=== PATIENT | male | born 1965 | race Hispanic/Latino ===

== ENCOUNTER → 2019-10-14 | Outpatient (CLI) | payer MEDICARE, OTHER | END | disposition home or self-care (01) | LOC: OIH 12:32 | PROVIDERS: ATTEND Internal Medicine | DX: I70.0 Atherosclerosis of aorta (principal); I10 Essential (primary) hypertension | CPT/HCPCS: 71046 ==

== ENCOUNTER → 2020-01-09 | Outpatient (CLI) | payer OTHER | END | disposition home or self-care (01) | LOC: OIH 10:32 | PROVIDERS: ATTEND Internal Medicine | DX: I11.0 Hypertensive heart disease with heart failure (principal); I50.9 Heart failure, unspecified | CPT/HCPCS: 71046 ==

== ENCOUNTER → 2021-01-14 | Outpatient (CLI) | payer OTHER | END | disposition home or self-care (01) | LOC: OIH 09:29 | PROVIDERS: ATTEND Internal Medicine | DX: M51.36 Other intervertebral disc degeneration, lumbar region (principal); M47.814 Spondylosis without myelopathy or radiculopathy, thoracic region | CPT/HCPCS: 72100 ==

== ENCOUNTER → 2023-09-12 | Outpatient (CLI) | payer OTHER ==
[~2023-09-12] MED LIST: ATOR40TA69 PO; HYDR-4068 PO; HYDR25TA PO; LEVE500T19 PO; LOSA50TA64 PO; METF-444 PO; METO50TA18 PO; OMEP20CA12 PO
== END | disposition home or self-care (01) ==
LOC: OIH 10:28
PROVIDERS: ATTEND Internal Medicine
DX: M16.0 Bilateral primary osteoarthritis of hip (principal); M25.551 Pain in right hip
CPT/HCPCS: 73521

== ENCOUNTER → 2024-02-20 | Outpatient (CLI) | payer OTHER | END | disposition home or self-care (01) | LOC: RAH 12:39 | PROVIDERS: ATTEND Student in an Organized Health Care Education/Training Program | DX: I51.7 Cardiomegaly (principal); I25.10 Atherosclerotic heart disease of native coronary artery without angina pectoris | CPT/HCPCS: 93306 ==

== ENCOUNTER → 2024-02-28 | Outpatient (CLI) | payer OTHER ==
[~2024-02-28] MED LIST changes: +IOHEXOL 350 MG/ML 100ML INFUS..BTL IV ONE; +METOPROLOL TARTRATE 1 MG/ML 5ML VIAL IV ONE
== END | disposition home or self-care (01) ==
LOC: RAH 07:59
PROVIDERS: ATTEND Student in an Organized Health Care Education/Training Program
DX: I25.10 Atherosclerotic heart disease of native coronary artery without angina pectoris (principal)
CPT/HCPCS: 75574; J3490; Q9967

== ENCOUNTER 2024-04-03 07:58 | Day surgery (SDC) | payer OTHER ==
[2024-04-01 08:36] LABS: BASOPHILS # (AUTO) 0.05 K/uL (0.00-0.20); BASOPHILS % (AUTO) 0.9 % (0.0-5.0); EOSINOPHILS # (AUTO) 0.49 K/uL (0.00-0.70); EOSINOPHILS % (AUTO) 9.2 % (0.0-8.0); IMMATURE GRANULOCYTE ABSOLUTE 0.02 K/uL (0-1); LYMPHOCYTES # (AUTO) 1.2 K/uL (1.0-4.8); MEAN CORPUSCULAR HEMOGLOBIN 31.9 pg (27.0-33.0); MEAN CORPUSCULAR HGB CONC 33.1 g/dL (32.0-36.0); MEAN CORPUSCULAR VOLUME 96.3 fL (79-99); MONOCYTES # (AUTO) 0.7 K/uL (0.1-1.0); MONOCYTES % (AUTO) 13.6 % (3.0-13.0); NEUTROPHILS # (AUTO) 2.8 K/uL (1.8-7.7); NEUTROPHILS % (AUTO) 52.9 % (40.0-77.0); PLATELET COUNT (AUTO) 232 K/uL (130-400); RED BLOOD CELL COUNT(AUTO) 4.05 MIL/uL (4.50-6.20); RED CELL DISTRIBUTION WIDTH 14.4 % (11.0-15.5); WHITE BLOOD COUNT (AUTO) 5.4 K/uL (4.8-10.8)
[2024-04-01 08:46] LABS: INR 1.06 (0.85-1.15); PROTHROMBIN TIME 11.4 SEC (9.6-11.6)
[2024-04-01 08:47] LABS: PARTIAL THROMBOPLASTIN TIME 27.9 SEC (26.3-35.5)
[2024-04-01 08:50] VITALS: BP 148/76; PULSE 65; RESP 19
[2024-04-01 08:50] LABS: CREATININE 1.2 mg/dL (0.5-1.3); POTASSIUM 3.8 mmol/L (3.5-5.1)
[2024-04-01 08:53] LABS: APPEARANCE,URINE CLEAR (CLEAR); BILIRUBIN,URINE NEGATIVE (NEGATIVE); COLOR,URINE COLORLESS (YELLOW); GLUCOSE, URINE (UA) NEGATIVE (NEGATIVE); KETONES,URINE NEGATIVE (NEGATIVE); LEUKOCYTE ESTERASE ,URINE NEGATIVE Leu/uL (NEGATIVE); NITRATE,URINE NEGATIVE (NEGATIVE); OCCULT BLOOD,URINE NEGATIVE (NEGATIVE); PH,URINE 6.5 (5.0-8.0); PROTEIN,URINE NEGATIVE (NEGATIVE); UROBILINOGEN,URINE 0.2 mg/dL (0.2-1.0)
[2024-04-01 08:57] LABS: ADD UA MICROSCOPIC NO
[2024-04-01 09:19] LABS: B-TYPE NATRIURETIC PEPTIDE 29 pg/mL (0-100)
[2024-04-03] VITALS (11 sets, daily range): BP systolic 105–151; BP diastolic 50–82; PULSE 61–76; RESP 15–18
[~2024-04-03] VITALS: Ht 182.9 cm; Wt 122.9 kg
[~2024-04-03 07:58] MED LIST changes: -IOHEXOL 350 MG/ML 100ML INFUS..BTL IV ONE; -METOPROLOL TARTRATE 1 MG/ML 5ML VIAL IV ONE
[2024-04-03] MEDS: 0.9%NACL 1000ML 1,000 ML IV ONE (09:16)
[2024-04-03] MEDS ORDERED: GABA-529 PO (09:33)
[2024-04-03] MEDS ORDERED: BACL10TA PO (09:33)
[2024-04-03] MEDS ORDERED: NITR0.4T50 SL (09:33)
[2024-04-03] MEDS ORDERED: TRAZ-185 PO (09:33)
[2024-04-03] MEDS ORDERED: ALBU90AE3 IH (09:33)
[2024-04-03] MEDS ORDERED: AMLO-257 PO (09:33)
[2024-04-03] MEDS ORDERED: FURO20TA4 PO (09:33)
[2024-04-03] MEDS ORDERED: AEC81 PO (09:33)
[2024-04-03] MEDS ORDERED: CARB100T61 PO (09:33)
[2024-04-03] MEDS ORDERED: ZOLP10TA2 PO (09:33)
[2024-04-03] MEDS ORDERED: DICL75TA5 PO (09:33)
[2024-04-03] MEDS ORDERED: IOHEXOL 350 MG/ML 100ML INFUS..BTL IV ONE (13:22)
[2024-04-03] MEDS ORDERED: MIDAZOLAM HCL 1 MG/ML 2ML VIAL ONE (13:22)
[2024-04-03] MEDS ORDERED: FENTANYL CITRATE PF 50 MCG/1 ML 2ML VIAL ONE (13:22)
[2024-04-03] MEDS ORDERED: VERAPAMIL HCL 2.5 MG/ML VIAL ONE (13:22)
[2024-04-03] MEDS ORDERED: LIDOCAINE HCL 400MG/20ML VIAL ONE (13:23)
[2024-04-03] MEDS ORDERED: NITROGLYCERIN 50MG VIAL ONE (13:23)
[2024-04-03] MEDS ORDERED: HEPARIN 10,000 UNIT/10ML (1,000 UNIT/ML) VIAL ONE (13:23)
[2024-04-03] MEDS ORDERED: GLUCAGON 1MG KIT 1 MG ML IM PRN (14:30)
[2024-04-03] MEDS ORDERED: 0.9%NACL 1000ML 1,000 ML IV SCH (14:30)
[2024-04-03] MEDS ORDERED: DEXTROSE 50%-WATER 50 ML DISP.SYRIN IV PRN (14:30)
== END 2024-04-03 18:35 | disposition home or self-care (01) ==
LOC: DAH 07:58
PROVIDERS: ATTEND Student in an Organized Health Care Education/Training Program
DX: I25.118 Atherosclerotic heart disease of native coronary artery with other forms of angina pectoris (principal); I10 Essential (primary) hypertension; R06.00 Dyspnea, unspecified; E11.65 Type 2 diabetes mellitus with hyperglycemia; E78.5 Hyperlipidemia, unspecified; Z96.643 Presence of artificial hip joint, bilateral; Z79.82 Long term (current) use of aspirin; Z79.84 Long term (current) use of oral hypoglycemic drugs; Z79.899 Other long term (current) drug therapy
CPT/HCPCS: 80048; 83880; 85025; 85610; 85730; 81003; 36415; 71045; 93005; 93458; 82948 ×2; C1769; C1894; A4649; J3010; J3490 ×3; J7030; J1644 ×2; J2250; Q9967; A4215; A4222; A4221; A4663; A4216; A4606; Q9965; A4223 ×3; 99156; 99157

== ENCOUNTER → 2024-07-04 | Outpatient (CLI) | payer OTHER ==
[~2024-07-04] MED LIST changes: +AEC81 PO; +ALBU90AE3 IH; +AMLO-257 PO; +BACL10TA PO; +CARB100T61 PO; +DICL75TA5 PO; +FURO20TA4 PO; +GABA-529 PO; -HYDR-4068 PO; -LEVE500T19 PO; +NITR0.4T50 SL; +TRAZ-185 PO; +ZOLP10TA2 PO
== END | disposition home or self-care (01) ==
LOC: RAH 07:42
PROVIDERS: ATTEND Internal Medicine
DX: M19.071 Primary osteoarthritis, right ankle and foot (principal); E11.621 Type 2 diabetes mellitus with foot ulcer; L97.519 Non-pressure chronic ulcer of other part of right foot with unspecified severity
CPT/HCPCS: 73620

== ENCOUNTER → 2024-07-19 | Outpatient (CLI) | payer OTHER | END | disposition home or self-care (01) | LOC: RAH 07:07 | PROVIDERS: ATTEND Internal Medicine | DX: S92.911A Unspecified fracture of right toe(s), initial encounter for closed fracture (principal); E11.621 Type 2 diabetes mellitus with foot ulcer; M19.071 Primary osteoarthritis, right ankle and foot; M86.8X7 Other osteomyelitis, ankle and foot; X58.XXXA Exposure to other specified factors, initial encounter; Y93.89 Activity, other specified; Y92.89 Other specified places as the place of occurrence of the external cause; Y99.8 Other external cause status | CPT/HCPCS: 73700 ==

== ENCOUNTER → 2025-05-29 | Outpatient (CLI) | payer OTHER ==
[~2025-05-29] MED LIST changes: +ZOLP-685 PO; -ZOLP10TA2 PO
--- NOTE | 2025-05-30 14:10 | HMCIMG ---
EXAMINATION: NONCONTRAST CT EXAMINATION OF THE LUMBAR SPINE. CLINICAL HISTORY: Suspected spinal canal stenosis. COMPARISON: None provided. TECHNIQUE: Thin collimated axial CT images of the lumbar spine were obtained with sagittal and coronal reformatted images also submitted. FINDINGS: The lumbar alignment is within normal limits. There is straightening of the lumbar spine that may reflect paraspinal muscle spasm. Vertebral body heights are maintained without a displaced fracture. The paraspinal musculature and soft tissues are within normal limits. FINDINGS BY LEVEL: L1-L2: Mild disc height loss and disc vacuum phenomenon. Bilobed lateral recess protrusions without canal or foraminal stenosis. The facet joints are preserved. L2-L3: There is advanced disc height loss with disc vacuum phenomenon and endplate degenerative changes. Disc bulge with endplate spondylotic changes deforming the ventral thecal sac together with ligamentum flavum hypertrophy contributing to moderate canal and bilateral foraminal stenosis. The facet joints are preserved. L3-L4: Mild disc bulge with bilobed lateral disc protrusion effacing the ventral thecal sac without canal or foraminal stenosis. The facet joints are preserved. L4-L5: Mild disc height loss with disc vacuum phenomena. There is disc bulge with central protrusion and endplate spondylotic changes effaces the ventral thecal sac and results in mild central canal stenosis and mild bilateral neural foraminal narrowing. Facet joints are preserved. L5-S1: Mild disc height loss. There is disc bulge with bilobed foraminal protrusions effaces the ventral thecal sac, and results in mild central canal stenosis and moderate lateral recess and neural foramina narrowing. Facet joints are preserved. IMPRESSION: 1. No acute osseous injury. 2. Multilevel degenerative changes of the lumbar spine, most pronounced at L2-L3 with moderate spinal canal and bilateral foraminal stenosis. 3. Mild central canal stenosis at L4-L5 and L5-S1, with mild L4-L5 and moderate L5-S1 foraminal stenosis. /Bronson
== END | disposition home or self-care (01) ==
LOC: RAH 11:08
PROVIDERS: ATTEND Internal Medicine
DX: M47.26 Other spondylosis with radiculopathy, lumbar region (principal); M48.07 Spinal stenosis, lumbosacral region; M51.379 Other intervertebral disc degeneration, lumbosacral region without mention of lumbar back pain or lower extremity pain; M48.061 Spinal stenosis, lumbar region without neurogenic claudication; R26.81 Unsteadiness on feet; R29.898 Other symptoms and signs involving the musculoskeletal system
CPT/HCPCS: 72131